=== PATIENT | female | born 1970 | race Hispanic/Latino ===

== ENCOUNTER 2021-12-26 13:13 | Inpatient (IN) | payer MEDICARE ==
[2021-12-27 01:32] LABS: Basophils # (Auto) 0.1 K/mm3 (0.0-0.1); Basophils % (Auto) 1.9 % (0.0-1.8); Eosinophils # (Auto) 0.2 K/mm3 (0.0-0.4); Eosinophils % (Auto) 3.8 % (0.0-4.3); Hematocrit 36.1 % (30.3-42.9); Hemoglobin 11.6 gm/dl (10.1-14.3); Lymphocytes # (Auto) 1.7 K/mm3 (1.2-5.4); Mean Corpuscular HGB Conc 32 % (30-34); Mean Corpuscular Volume 87 fl (79-97); Monocytes # (Auto) 0.3 K/mm3 (0.0-0.8); Monocytes % (Auto) 6.3 % (0.0-7.3); Platelet Count 270 K/mm3 (140-440); Red Blood Count 4.13 M/mm3 (3.65-5.03); Red Cell Distribution Width 16.7 % (13.2-15.2)
[2021-12-27 01:51] LABS: Albumin 2.6 g/dL (3.9-5); Calcium 9.6 mg/dL (8.4-10.2)
--- NOTE | 2021-12-27 03:41 | Emergency Department Report ---
ED General Adult HPI - General Chief complaint: Medical Clearance Stated complaint: D[place] [place] Time Seen by Provider: 12/27/21 03:17 Source: patient, RN notes reviewed, old records reviewed Mode of arrival: Ambulatory Limitations: Physical Limitation - History of Present Illness Initial comments: The patient was evaluated in the emergency department for symptoms described in the history of present illness. He/she was evaluated in the context of the global COVID-19 pandemic, which necessitated consideration that the patient might be at risk for infection with the virus that causes COVID-19. Institutional protocols and algorithms that pertain to the evaluation of patients at risk for COVID-19 are in a state of rapid change based on info rmation released by regulatory bodies including the CDC and federal and state organizations. These policies and algorithms were followed during the patient's care in the emergency department. Please note that these policies, procedures and recommendations changed on a rapid basis. Primary CARE doctor: Dr. Ventura Past medical history: End-stage renal disease on hemodialysis, Thursday, Thursday, Thursday. Right-sided vascular access catheter, indwelling Zazueta catheter, COPD, PVD. The patient is a 51-year-old female, who presents to the emergency room today with a complaint that her recycling assistant sent her to the emergency room for a nonfunctioning right-sided vascular access hemodialysis catheter. The patient endorses diarrhea. The patient does endorse chronic pain. She is due for dialysis today. -: Sudden Consistency: constant Improves with: none Worsens with: none - Related Data Previous Rx's Medication Instructions Recorded Last Taken Type Acetaminophen [Acetaminophen TAB] 650 mg PO Q4H PRN tablet 12/13/21 Unknown Rx Aspirin EC [Ecotrin] 325 mg PO QDAY tablet 12/13/21 Unknown Rx Folic Acid/Vit B Comp W-C [Renal 1 cap PO QDAY capsule 12/13/21 Unknown Rx Caps] Metoprolol [Lopressor TAB] 12.5 mg PO BID tablet 12/13/21 Unknown Rx Allergies Allergy/AdvReac Type Severity Reaction Status Date / Time morphine Allergy Rash Verified 12/11/21 13:33 ED Review of Systems ROS: Stated complaint: D[place]YSIS [place] Other details as noted in HPI Constitutional: denies: fever Eyes: denies: eye discharge ENT: denies: epistaxis Respiratory: denies: cough Cardiovascular: denies: chest pain Gastrointestinal: denies: abdominal pain Genitourinary: denies: dysuria Musculoskeletal: back pain Neurological: weakness Psychiatric: anxiety ED Past Medical Hx - Past Medical History Hx CVA: Yes Hx Congestive Heart Failure: No Hx Diabetes: Yes Hx Renal Disease: Yes (dialysis 3x week MWF) Hx Asthma: No Hx COPD: No Additional medical history: hypotension - Surgical History Additional Surgical History: bka - Social History Smoking Status: Never Smoker - Medications Home Medications: Home Medications Medication Instructions Recorded Confirmed Last Taken Type Acetaminophen [Acetaminophen TAB] 650 mg PO Q4H PRN tablet 12/13/21 Unknown Rx Aspirin EC [Ecotrin] 325 mg PO QDAY tablet 12/13/21 Unknown Rx Folic Acid/Vit B Comp W-C [Renal 1 cap PO QDAY capsule 12/13/21 Unknown Rx Caps] Metoprolol [Lopressor TAB] 12.5 mg PO BID tablet 12/13/21 Unknown Rx ED Physical Exam - General Limitations: No Limitations General appearance: alert, in no apparent distress - Head Head exam: Present: atraumatic, normocephalic - Eye Eye exam: Present: normal appearance, EOMI. Absent: nystagmus - ENT ENT exam: Present: normal exam, normal orophraynx, mucous membranes moist, normal external ear exam - Neck Neck exam: Present: normal inspection, full ROM. Absent: tenderness, meningismus - Respiratory Respiratory exam: Present: normal lung sounds bilaterally. Absent: respiratory distress, wheezes, rales, rhonchi, stridor, decreased breath sounds - Cardiovascular Cardiovascular Exam: Present: normal rhythm, tachycardia, normal heart sounds. Absent: bradycardia, irregular rhythm, systolic murmur, diastolic murmur, rubs, gallop - GI/Abdominal GI/Abdominal exam: Present: soft. Absent: distended, tenderness, guarding, rebound, rigid - External exam: Present: normal external exam (Patient provides verbal consent for external examination. Chaperoned by nurse Guevara.), other (There is a Zazueta catheter in place draining clear yellow urine) - Extremities Exam Extremities exam: Present: normal inspection (Left lower extremity status post below-knee amputation. There is an indwelling PICC line noted in the left upper extremity), full ROM, other (2+ pulses noted in the bilateral upper extrem ities.). Absent: calf tenderness - Back Exam Back exam: Present: normal inspection. Absent: tenderness, CVA tenderness (R), CVA tenderness (L), paraspinal tenderness, vertebral tenderness - Neurological Exam Neurological exam: Present: alert, oriented X3, other (No facial droop. Tongue midline. Extraocular movements intact bilaterally. Facial sensation intact to light touch in V1, V2, V3 distribution bilaterally. 5 and a 5 strength in 4 extremities. Sensation intact to light touch in 4 extremities.) - Psychiatric Psychiatric exam: Present: anxious, flat affect - Skin Skin exam: Present: warm, dry, intact, normal color. Absent: rash ED Course Vital Signs 12/26/21 12/27/21 12/27/21 15:04 03:50 03:54 Temperature 97.9 F 97.6 F Pulse Rate 108 H 102 H 98 H Respiratory 18 13 14 Rate Blood Pressure 126/24 Blood Pressure 106/41 [Left] O2 Sat by Pulse 96 100 Oximetry 12/27/21 12/27/21 12/27/21 04:01 04:02 04:09 Temperature 97.6 F Pulse Rate 98 H Respiratory Rate Blood Pressure Blood Pressure 126/24 105/42 [Left] O2 Sat by Pulse 100 Oximetry ED Medical Decision Making - Lab Data Result diagrams: 12/27/21 01:05 12/27/21 01:05 Vital Signs 12/26/21 12/27/21 12/27/21 15:04 03:50 03:54 Temperature 97.9 F 97.6 F Pulse Rate 108 H 102 H 98 H Respiratory 18 13 14 Rate Blood Pressure 126/24 Blood Pressure 106/41 [Left] O2 Sat by Pulse 96 100 Oximetry 12/27/21 12/27/21 12/27/21 04:01 04:02 04:09 Temperature 97.6 F Pulse Rate 98 H Respiratory Rate Blood Pressure Blood Pressure 126/24 105/42 [Left] O2 Sat by Pulse 100 Oximetry Lab Results 12/27/21 12/27/21 12/27/21 Range/Units 01:05 01:05 01:05 WBC 5.4 (4.5-11.0) K/mm3 RBC 4.13 (3.65-5.03) M/mm3 Hgb 11.6 (10.1-14.3) gm/dl Hct 36.1 (30.3-42.9) % MCV 87 (79-97) fl MCH 28 (28-32) pg MCHC 32 (30-34) % RDW 16.7 H (13.2-15.2) % Plt Count 270 (140-440) K/mm3 Lymph % (Auto) 31.0 (13.4-35.0) % [place] % (Auto) 6.3 (0.0-7.3) % Eos % (Auto) 3.8 (0.0-4.3) % Baso % (Auto) 1.9 H (0.0-1.8) % Lymph # (Auto) 1.7 (1.2-5.4) K/mm3 [place] # (Auto) 0.3 (0.0-0.8) K/mm3 Eos # (Auto) 0.2 (0.0-0.4) K/mm3 Baso # (Auto) 0.1 (0.0-0.1) K/mm3 Seg Neutrophils % 57.0 (40.0-70.0) % Seg Neutrophils # 3.1 (1.8-7.7) K/mm3 Sodium 131 L (137-145) mmol/L Potassium 4.2 (3.6-5.0) mmol/L Chloride 93.2 L (98-107) mmol/L Carbon Dioxide 21 L (22-30) mmol/L Anion Gap 21 mmol/L BUN 44 H (7-17) mg/dL Creatinine 3.9 H (0.6-1.2) mg/dL Estimated GFR 12 ml/min BUN/Creatinine Ratio 11 % Glucose 118 H (65-100) mg/dL Calcium 9.6 (8.4-10.2) mg/dL Total Bilirubin 0.20 (0.1-1.2) mg/dL AST 32 (5-40) units/L ALT 18 (7-56) units/L Alkaline Phosphatase 338 H (35-129) units/L Total Protein 5.6 L (6.3-8.2) g/dL Albumin 2.6 L (3.9-5) g/dL Albumin/Globulin Ratio 0.9 % HCG, Qual (Negative) Salicylates < 0.3 L (2.8-20.0) mg/dL Acetaminophen (10.0-30.0) ug/mL Plasma/Serum Alcohol (0-0.07) % 12/27/21 12/27/21 12/27/21 Range/Units 01:05 01:05 01:05 WBC (4.5-11.0) K/mm3 RBC (3.65-5.03) M/mm3 Hgb (10.1-14.3) gm/dl Hct (30.3-42.9) % MCV (79-97) fl MCH (28-32) pg MCHC (30-34) % RDW (13.2-15.2) % Plt Count (140-440) K/mm3 Lymph % (Auto) (13.4-35.0) % [place] % (Auto) (0.0-7.3) % Eos % (Auto) (0.0-4.3) % Baso % (Auto) (0.0-1.8) % Lymph # (Auto) (1.2-5.4) K/mm3 [place] # (Auto) (0.0-0.8) K/mm3 Eos # (Auto) (0.0-0.4) K/mm3 Baso # (Auto) (0.0-0.1) K/mm3 Seg Neutrophils % (40.0-70.0) % Seg Neutrophils # (1.8-7.7) K/mm3 Sodium (137-145) mmol/L Potassium (3.6-5.0) mmol/L Chloride (98-107) mmol/L Carbon Dioxide (22-30) mmol/L Anion Gap mmol/L BUN (7-17) mg/dL Creatinine (0.6-1.2) mg/dL Estimated GFR ml/min BUN/Creatinine Ratio % Glucose (65-100) mg/dL Calcium (8.4-10.2) mg/dL Total Bilirubin (0.1-1.2) mg/dL AST (5-40) units/L ALT (7-56) units/L Alkaline Phosphatase (35-129) units/L Total Protein (6.3-8.2) g/dL Albumin (3.9-5) g/dL Albumin/Globulin Ratio % HCG, Qual Negative (Negative) Salicylates (2.8-20.0) mg/dL Acetaminophen 5.0 L (10.0-30.0) ug/mL Plasma/Serum Alcohol < 0.01 (0-0.07) % - Medical Decision Making Differential diagnosis, including but not limited to: End-stage renal disease on hemodialysis, nonfunctioning hemodialysis access catheter Assessment and plan: 51-year-old female, presenting to the emergency room today with a primary complaint of nonfunctioning right-sided hemodialysis access catheter. She is due for hemodialysis today. The patient is currently a resident of [facility]. Given her disabled status, and poor mobility, she is not going to be able to follow-up as an outpatient to have her vascular access catheter change. Given that she is due for hemodialysis today, and given that she needs to have a functioning vascular access catheter for hemodialysis, I reached out to her recycling assistant, Dr. Violet Ngo We discussed the patient's history, physical, laboratory studies and overall clinical impression. He will follow in consultation, and arrange for hemodialysis. He also indicates that he will get in touch with interventional radiology and/or vascular surgery, to replace this patient's vascular access catheter. Given patient's multiple needs, including need for hemodialysis today, need for vascular access catheter replacement/repair, we will admit this patient to the medical service to facilitate coordination of the aforementioned. The patient is agreeable to this plan of care. Hospital physician, Dr. Anushka Ledezma to admit to [facility] Critical care attestation.: If time is entered above; I have spent that time in minutes in the direct care of this critically ill patient, excluding procedure time. ED Disposition Clinical Impression: ESRD (end stage renal disease), Dialysis catheter clot or failure Disposition: 09 ADMITTED INPATIENT Is pt being admited?: Yes Does the pt Need Aspirin: No Condition: Stable
[2021-12-27] MEDS ORDERED: ACETAMINOPHEN 325 MG TAB PO PRN (05:20)
[2021-12-27] MEDS ORDERED: MORPHINE 4 MG/1 ML INJ IV PRN (05:20)
[2021-12-27] MEDS ORDERED: MAGNESIUM HYDROXIDE (MOM) ORAL LIQD UDC PO PRN (05:20)
[2021-12-27] MEDS ORDERED: MORPHINE 2 MG/1 ML INJ IV PRN (05:20)
[2021-12-27] MEDS ORDERED: ONDANSETRON 4 MG/2 ML INJ IV PRN (05:20)
[2021-12-27] MEDS ORDERED: DEXTROSE 50% IN WATER (25GM) 50 ML SYRINGE IV PRN ×2 (05:20→05:27)
--- NOTE | 2021-12-27 05:34 | History and Physical Report ---
History of Present Illness Date of examination: 12/27/21 Date of admission: 12/27/2021 Chief complaint: Malfunctioning Vas Cath. History of present illness: 51-year-old female with known history of end-stage renal disease on dialysisThursday, Wednesdays and Fridays presenting to the emergency room today for evaluation of a malfunctioning right-sided vascular access catheter. Patient follows up with Dr. Ngo and she has been encouraged to report to the emergency room for further evaluation and reestablishment of vascular access. Patient indicates that she has been having occasional diarrhea meanwhile she has no major complaints today. She denies any fever or chills, no nausea or vomiting and no abdominal pain. Work-up in the emergency room today, labs were significant for BUN of 44 and creatinine of 3.9 sodium of 131. Potassium of 4.2. Patient is due for dialysis today. Past History Past Medical History: COPD, diabetes, dialysis (THU,THU,THU), ESRD, hypertension, PVD, stroke Past Surgical History: Other (Vas-Cath placement) Social history: no significant social history Family history: no significant family history Medications and Allergies Allergies Allergy/AdvReac Type Severity Reaction Status Date / Time morphine Allergy Rash Verified 12/11/21 13:33 Home Medications Medication Instructions Recorded Confirmed Last Taken Type Acetaminophen [Acetaminophen TAB] 650 mg PO Q4H PRN tablet 12/13/21 Unknown Rx Aspirin EC [Ecotrin] 325 mg PO QDAY tablet 12/13/21 Unknown Rx Folic Acid/Vit B Comp W-C [Renal 1 cap PO QDAY capsule 12/13/21 Unknown Rx Caps] Metoprolol [Lopressor TAB] 12.5 mg PO BID tablet 12/13/21 Unknown Rx Active Meds: Active Medications Acetaminophen (Acetaminophen 325 Mg Tab) 650 mg PO Q4H PRN PRN Reason: Pain MILD(1-3)/Fever >100.5/IBANEZ Dextrose (Dextrose 50% In Water (25gm) 50 Ml Syringe) 50 ml IV Q30MIN PRN; Protocol PRN Reason: Hypoglycemia Dextrose (Dextrose 50% In Water (25gm) 50 Ml Syringe) 50 ml IV Q30MIN PRN; Protocol PRN Reason: Hypoglycemia Insulin Human Lispro (Insulin Lispro 100 Unit/Ml) 0 unit SUB-Q ACHS HAYDER; Protocol Magnesium Hydroxide (Magnesium Hydroxide (Mom) Oral Liqd Udc) 30 ml PO Q4H PRN PRN Reason: Constipation Morphine Sulfate (Morphine 2 Mg/1 Ml Inj) 2 mg IV Q4H PRN PRN Reason: Pain, Moderate (4-6) Morphine Sulfate (Morphine 4 Mg/1 Ml Inj) 4 mg IV Q4H PRN PRN Reason: Pain , Severe (7-10) Ondansetron HCl (Ondansetron 4 Mg/2 Ml Inj) 4 mg IV Q8H PRN PRN Reason: Nausea And Vomiting Sodium Chloride (Sodium Chloride 0.9% 10 Ml Flush Syringe) 10 ml IV BID [place]DER Sodium Chloride (Sodium Chloride 0.9% 10 Ml Flush Syringe) 10 ml IV PRN PRN PRN Reason: LINE FLUSH Review of Systems Constitutional: no fever, no chills Ears, nose, mouth and throat: no nasal congestion, no sore throat Cardiovascular: no chest pain, no palpitations Respiratory: no cough, no shortness of breath Gastrointestinal: diarrhea, no abdominal pain, no nausea, no vomiting Genitourinary Female: no flank pain, no dysuria, no hematuria Musculoskeletal: no neck pain, no low back pain Integumentary: no rash, no pruritis Neurological: no headaches, no change in speech Psychiatric: no anxiety, no depression Endocrine: no polyphagia, no polydipsia, no polyuria, no nocturia Exam - Constitutional Vitals: Temp Pulse Resp BP Pulse Ox 97.6 F 98 H 14 105/42 100 12/27/21 04:02 12/27/21 04:02 12/27/21 03:54 12/27/21 04:09 12/27/21 04:01 General appearance: Present: no acute distress, well-nourished - EENT Eyes: Present: PERRL, EOM intact. Absent: scleral icterus ENT: hearing intact, clear oral mucosa, dentition normal - Neck Neck: Present: supple, normal ROM - Respiratory Respiratory effort: normal Respiratory: bilateral: CTA - Cardiovascular Rhythm: regular Heart Sounds: Present: S1 & S2. Absent: gallop, systolic murmur, diastolic murmur, rub Details: Vas-Cath on the right side of chest. - Extremities Extremities: no ischemia, pulses intact, pulses symmetrical, No edema, normal temperature, normal color, Full ROM Peripheral Pulses: within normal limits - Abdominal General gastrointestinal: Present: soft, non-tender, non-distended, normal bowel sounds. Absent: mass - Integumentary Integumentary: Present: clear, warm, dry, normal turgor. Absent: rash - Musculoskeletal Musculoskeletal: strength equal bilaterally - Psychiatric Psychiatric: appropriate mood/affect, intact judgment & insight, memory intact, cooperative - Neurologic Neurologic: CNII-XII intact, no focal deficits, moves all extremities Results - Labs CBC & Chem 7: 12/27/21 01:05 12/27/21 01:05 Labs: Abnormal lab results 12/27/21 12/27/21 12/27/21 Range/Units 01:05 01:05 01:05 RDW 16.7 H (13.2-15.2) % Baso % (Auto) 1.9 H (0.0-1.8) % Sodium 131 L (137-145) mmol/L Chloride 93.2 L (98-107) mmol/L Carbon Dioxide 21 L (22-30) mmol/L BUN 44 H (7-17) mg/dL Creatinine 3.9 H (0.6-1.2) mg/dL Glucose 118 H (65-100) mg/dL Alkaline Phosphatase 338 H (35-129) units/L Total Protein 5.6 L (6.3-8.2) g/dL Albumin 2.6 L (3.9-5) g/dL Salicylates < 0.3 L (2.8-20.0) mg/dL Acetaminophen (10.0-30.0) ug/mL 12/27/21 Range/Units 01:05 RDW (13.2-15.2) % Baso % (Auto) (0.0-1.8) % Sodium (137-145) mmol/L Chloride (98-107) mmol/L Carbon Dioxide (22-30) mmol/L BUN (7-17) mg/dL Creatinine (0.6-1.2) mg/dL Glucose (65-100) mg/dL Alkaline Phosphatase (35-129) units/L Total Protein (6.3-8.2) g/dL Albumin (3.9-5) g/dL Salicylates (2.8-20.0) mg/dL Acetaminophen 5.0 L (10.0-30.0) ug/mL Assessment and Plan Assessment: 1. End-stage renal disease on dialysisThursday, Wednesdays and Fridays 2. Malfunctioning Vas-Cath 3. History of peripheral vascular disease 4 4. History of chronic pain Plan: 1. Patient admitted and will be scheduled for dialysis. 2. Consult placed to nephrology for evaluation. 3. Patient will require hemodialysis access. Vascular surgery to be consulted by the director of pharmacy. 4. We will resume routine home medications once reconciled. DVT prophylaxis: Subcutaneous heparin CODE STATUS: Full code
--- NOTE | 2021-12-27 07:15 | Consultation ---
History of Present Illness - Reason for Consult Consult date: 12/27/21 end stage renal disease Past History Past Medical History: COPD, diabetes, dialysis (MON,WED,THU), ESRD, hyper tension, PVD, stroke Past Surgical History: Other (Vas-Cath placement) Social history: no significant social history Family history: no significant family history Medications and Allergies Allergies Allergy/AdvReac Type Severity Reaction Status Date / Time morphine Allergy Rash Verified 12/11/21 13:33 Home Medications Medication Instructions Recorded Confirmed Last Taken Type Acetaminophen [Acetaminophen TAB] 650 mg PO Q4H PRN tablet 12/13/21 Unknown Rx Aspirin EC [Ecotrin] 325 mg PO QDAY tablet 12/13/21 Unknown Rx Folic Acid/Vit B Comp W-C [Renal 1 cap PO QDAY capsule 12/13/21 Unknown Rx Caps] Metoprolol [Lopressor TAB] 12.5 mg PO BID tablet 12/13/21 Unknown Rx Active Meds: Active Medications Acetaminophen (Acetaminophen 325 Mg Tab) 650 mg PO Q4H PRN PRN Reason: Pain MILD(1-3)/Fever >100.5/IBANEZ Dextrose (Dextrose 50% In Water (25gm) 50 Ml Syringe) 0 ml IV Q30MIN PRN; Protocol PRN Reason: Hypoglycemia Hydromorphone HCl (Hydromorphone 0.5 Mg/0.5 Ml Inj) 0.5 mg IV Q4H PRN PRN Reason: Pain , (4-6) Insulin Human Lispro (Insulin Lispro 100 Unit/Ml) 0 unit SUB-Q ACHS [facility]; Protocol Magnesium Hydroxide (Magnesium Hydroxide (Mom) Oral Liqd Udc) 30 ml PO Q4H PRN PRN Reason: Constipation Ondansetron HCl (Ondansetron 4 Mg/2 Ml Inj) 4 mg IV Q8H PRN PRN Reason: Nausea And Vomiting Sodium Chloride (Sodium Chloride 0.9% 10 Ml Flush Syringe) 10 ml IV BID [place] Sodium Chloride (Sodium Chloride 0.9% 10 Ml Flush Syringe) 10 ml IV PRN PRN PRN Reason: LINE FLUSH Exam - Vital Signs Vital signs: Vital Signs Temp Pulse Resp BP Pulse Ox 97.9 F 108 H 18 106/41 96 12/26/21 15:04 12/26/21 15:04 12/26/21 15:04 12/26/21 15:04 12/26/21 15:04 Results - Lab Results 12/27/21 01:05 12/27/21 01:05 Most recent lab results Calcium 9.6 mg/dL (8.4-10.2) 12/27/21 01:05
[2021-12-27] MEDS: INSULIN LISPRO 100 UNIT/ML SUB-Q SCH ×4 (08:33→21:57)
[2021-12-27] MEDS: HYDROmorphone 0.5 MG/0.5 ML INJ IV PRN ×2 (08:47→17:19)
[2021-12-27] MEDS ORDERED: HEPARIN/NS 5000 UNIT/500ML 500 ML IR ONE (11:00)
[2021-12-27] MEDS ORDERED: HEPARIN 10,000 UNITS/10 ML VIAL ONE (11:00)
[2021-12-27] MEDS ORDERED: fentaNYL 100 MCG/2 ML INJ ONE (11:13)
[2021-12-27] MEDS ORDERED: MIDAZOLAM 2 MG/2 ML INJ ONE (11:13)
[2021-12-27] MEDS ORDERED: SODIUM CHLORIDE 0.9% 250ML 250 ML ONE (11:14)
--- NOTE | 2021-12-27 11:32 | Consultation ---
History of Present Illness - Reason for Consult Consult date: 12/27/21 Complications of Dialysis Access Requesting physician: LINDA FRANCISCO - History of Present Illness The patient is a 51-year-old female with a history of end-stage renal disease who is on hemodialysis through a right internal jugular permacath. She was at hemodialysis when they attempted to flush her permacath and broke the tip of the syringe off in the hub of the permacath. She was unable to undergo dialysis it was sent to the emergency department for exchange of her permacath. She denies any chest pain and shortness of breath. She does complain of some back pain however she has a history of chronic pain. She has no additional complaints at this time. Past History Past Medical History: COPD, diabetes, dialysis (MON,THU,THU), ESRD, hypertens ion, PVD, stroke Past Surgical History: Other (Permacath insertion, spinal cord stimulator) Social history: no significant social history Family history: no significant family history Medications and Allergies Allergies Allergy/AdvReac Type Severity Reaction Status Date / Time morphine Allergy Rash Verified 12/11/21 13:33 Home Medications Medication Instructions Recorded Confirmed Last Taken Type Acetaminophen [Acetaminophen TAB] 650 mg PO Q4H PRN tablet 12/13/21 Unknown Rx Aspirin EC [Ecotrin] 325 mg PO QDAY tablet 12/13/21 Unknown Rx Folic Acid/Vit B Comp W-C [Renal 1 cap PO QDAY capsule 12/13/21 Unknown Rx Caps] Metoprolol [Lopressor TAB] 12.5 mg PO BID tablet 12/13/21 Unknown Rx Active Meds: Active Medications Acetaminophen (Acetaminophen 325 Mg Tab) 650 mg PO Q4H PRN PRN Reason: Pain MILD(1-3)/Fever >100.5/IBANEZ Dextrose (Dextrose 50% In Water (25gm) 50 Ml Syringe) 0 ml IV Q30MIN PRN; Protocol PRN Reason: Hypoglycemia Hydromorphone HCl (Hydromorphone 0.5 Mg/0.5 Ml Inj) 0.5 mg IV Q4H PRN PRN Reason: Pain , (4-6) Last Admin: 12/27/21 08:47 Dose: 0.5 mg Insulin Human Lispro (Insulin Lispro 100 Unit/Ml) 0 unit SUB-Q ACHS [facility]; Protocol Last Admin: 12/27/21 08:33 Dose: Not Given Magnesium Hydroxide (Magnesium Hydroxide (Mom) Oral Liqd Udc) 30 ml PO Q4H PRN PRN Reason: Constipation Ondansetron HCl (Ondansetron 4 Mg/2 Ml Inj) 4 mg IV Q8H PRN PRN Reason: Nausea And Vomiting Sodium Chloride (Sodium Chloride 0.9% 10 Ml Flush Syringe) 10 ml IV BID HAYDER Sodium Chloride (Sodium Chloride 0.9% 10 Ml Flush Syringe) 10 ml IV PRN PRN PRN Reason: LINE FLUSH Review of Systems All systems: negative Exam - Constitutional Vitals: Temp Pulse Resp BP Pulse Ox 97.6 F 103 H 16 160/50 100 12/27/21 04:02 12/27/21 09:11 12/27/21 09:11 12/27/21 09:11 12/27/21 08:01 General appearance: Present: no acute distress - Neck Neck: Present: other (Right internal jugular permacath in place without overt signs of infection) - Respiratory Respiratory effort: normal - Cardiovascular Rhythm: regular - Extremities Extremities: no ischemia, No edema - Abdominal General gastrointestinal: Present: soft Female genitourinary: Present: other (Zazueta catheter in place) - Rectal Rectal Exam: deferred Results - Labs CBC & Chem 7: 12/27/21 01:05 12/27/21 01:05 Labs: Abnormal lab results 12/27/21 12/27/21 12/27/21 Range/Units 01:05 01:05 01:05 RDW 16.7 H (13.2-15.2) % Baso % (Auto) 1.9 H (0.0-1.8) % Sodium 131 L (137-145) mmol/L Chloride 93.2 L (98-107) mmol/L Carbon Dioxide 21 L (22-30) mmol/L BUN 44 H (7-17) mg/dL Creatinine 3.9 H (0.6-1.2) mg/dL Glucose 118 H (65-100) mg/dL Alkaline Phosphatase 338 H (35-129) units/L Total Protein 5.6 L (6.3-8.2) g/dL Albumin 2.6 L (3.9-5) g/dL Salicylates < 0.3 L (2.8-20.0) mg/dL Acetaminophen (10.0-30.0) ug/mL 12/27/21 Range/Units 01:05 RDW (13.2-15.2) % Baso % (Auto) (0.0-1.8) % Sodium (137-145) mmol/L Chloride (98-107) mmol/L Carbon Dioxide (22-30) mmol/L BUN (7-17) mg/dL Creatinine (0.6-1.2) mg/dL Glucose (65-100) mg/dL Alkaline Phosphatase (35-129) units/L Total Protein (6.3-8.2) g/dL Albumin (3.9-5) g/dL Salicylates (2.8-20.0) mg/dL Acetaminophen 5.0 L (10.0-30.0) ug/mL Assessment and Plan The patient is a 51-year-old female with a history of end-stage renal disease who was on hemodialysis through a right internal jugular permacath. The tip of a syringe was broken off into the hub of her permacath and she now requires exchange of her permacath. She was given the risk, benefits, and alternative procedures and consented to the procedure.
[2021-12-27] MEDS: LIDOCAINE (1%) 10 MG/1 ML VIAL 20 ML MDV ONE ×2 (11:36→11:37)
--- NOTE | 2021-12-27 11:43 | Operative Report ---
Operative Report Operative Report: Date of Procedure: 12/27/2021 Pre-operative Diagnosis: Complications of Dialysis Access Post-operative Diagnosis: Same Procedure(s): 1. Exchange of Right Internal Jugular Permacath to 23 Cm Glidepath Permacath over Wire 2. Radiologic Supervision with Interpretation 3. Monitored Moderate Sedation (Total Anesthesia Time: 12 Minutes) Surgeon: Leander Holloway M.D. Batch Mixer Operator: None Anesthesia: Local/Monitored Moderate Sedation EBL: Minimal Counts: Correct Complications: None Condition: Stable Findings: Catheter was placed with the distal tip in the right atrium and there was no evidence of pneumothorax at the completion of the case. Specimen: The indwelling catheter was discarded. Indication: The patient presented with a permacath that had the tip of a syringe broken off and one of the hubs was no longer usable. She is in need of a permacath exchange. She was given the risk, benefits, and alternative procedures and consented to the procedure. Description of Procedure: The prospecting driller film demonstrated that the patient's indwelling permacath at the distal tip in the mid superior vena cava. I decided to place a longer permacath. Lidocaine was used to anesthetize the skin and soft tissue surrounding the exit site of the indwelling catheter. A 0.035 J-wire was advanced through the permacath and into the inferior vena cava. A curved hemostat was then used to free the cuff from the surrounding soft tissue. Once the cuff was freed the catheter was removed leaving the wire in place. A 23 cm Glidepath permacath was then advanced over the wire by Seldinger technique and into place. The wire and stylette were then removed and both ports easily aspirated and flushed and were then primed with the appropriate amount heparin. The catheter was then secured in position with a 2-0 Ethilon interrupted fashion and was dressed with a sterile dressing. Final fluoroscopy demonstrated the catheter was in adequate position with the distal tip in the right atrium and no evidence of pneumothorax. The patient tolerated the procedure well. All sponge, needle, and instrument counts were correct. The patient was taken to the recovery area in stable condition.
--- NOTE | 2021-12-27 11:55 | Event Note ---
Date: 12/27/21 Patient seen and examined earlier this morning. He was currently residing in [facility] with plans to return upon discharge. Will have her Vas-Cath exchanged today and dialysis after. Anticipate patient can be discharged after dialysis back to [facility] later today. COVID test ordered.
[2021-12-27] MEDS ORDERED: HEPARIN 10,000 UNITS/10 ML VIAL IV PRN (11:58)
[2021-12-27] MEDS ORDERED: SODIUM CHLORIDE 0.9% 100 ML IV PRN (11:58)
[2021-12-27 15:42] LABS: Hepatitis B Surface Antigen Non-Reactive (Negative); Hepatitis C Virus Antibody Non-Reactive (NonReactive)
[2021-12-27] MEDS: METOPROLOL TARTRATE 25 MG TAB PO SCH (22:08)
[2021-12-28] MEDS: HYDROmorphone 0.5 MG/0.5 ML INJ IV PRN (03:14)
[2021-12-28 08:37] LABS: Basophils # (Auto) 0.1 K/mm3 (0.0-0.1); Basophils % (Auto) 1.4 % (0.0-1.8); Eosinophils # (Auto) 0.2 K/mm3 (0.0-0.4); Eosinophils % (Auto) 4.7 % (0.0-4.3); Hematocrit 36.6 % (30.3-42.9); Hemoglobin 11.7 gm/dl (10.1-14.3); Lymphocytes # (Auto) 1.5 K/mm3 (1.2-5.4); Lymphocytes % (Auto) 34.9 % (13.4-35.0); Mean Corpuscular HGB Conc 32 % (30-34); Mean Corpuscular Volume 87 fl (79-97); Monocytes # (Auto) 0.3 K/mm3 (0.0-0.8); Monocytes % (Auto) 7.8 % (0.0-7.3); Platelet Count 274 K/mm3 (140-440); Red Blood Count 4.19 M/mm3 (3.65-5.03); Red Cell Distribution Width 16.9 % (13.2-15.2)
[2021-12-28] MEDS: INSULIN LISPRO 100 UNIT/ML SUB-Q SCH ×3 (08:44→16:59)
[2021-12-28 08:59] LABS: Calcium 9.9 mg/dL (8.4-10.2)
[2021-12-28] MEDS: METOPROLOL TARTRATE 25 MG TAB PO SCH (09:00)
[2021-12-28] MEDS: oxyCODONE /ACETAMINOPHEN 5-325MG TAB PO PRN ×2 (09:13→18:19)
--- NOTE | 2021-12-28 09:40 | Progress Note ---
Subjective Date of service: 12/28/21 Objective - Vital Signs Vital signs: Vital Signs - 12hr 12/27/21 12/27/21 12/27/21 22:00 22:04 22:08 Temperature Pulse Rate 108 H 106 H 106 H Respiratory Rate Blood Pressure 95/43 Blood Pressure 95/43 [Left] O2 Sat by Pulse Oximetry 12/27/21 12/28/21 12/28/21 23:42 03:16 05:30 Temperature 98.4 F 98.7 F Pulse Rate 99 H 105 H 108 H Respiratory 16 15 Rate Blood Pressure 155/34 145/42 Blood Pressure [Left] O2 Sat by Pulse 96 99 Oximetry - Lab 12/28/21 07:21 12/28/21 07:21 Most recent lab results Calcium 9.9 mg/dL (8.4-10.2) 12/28/21 07:21 Medications & Allergies - Medications Allergies/Adverse Reactions: Allergies morphine Allergy (Verified 12/11/21 13:33) Rash Home Medications: Home Medications Medication Instructions Recorded Confirmed Last Taken Type Acetaminophen [Acetaminophen TAB] 650 mg PO Q4H PRN tablet 12/13/21 Unknown Rx Aspirin EC [Ecotrin] 325 mg PO QDAY tablet 12/13/21 Unknown Rx Folic Acid/Vit B Comp W-C [Renal 1 cap PO QDAY capsule 12/13/21 Unknown Rx Caps] Metoprolol [Lopressor TAB] 12.5 mg PO BID tablet 12/13/21 Unknown Rx Active Medications: Generic Name Dose Route Start Last Admin Trade Name Freq PRN Reason Stop Dose Admin Acetaminophen 650 mg 12/27/21 05:20 Acetaminophen 325 Mg Tab PO Q4H PRN Pain MILD(1-3)/Fever >100.5/IBANEZ Aspirin 325 mg 12/28/21 10:00 12/28/21 09:13 Aspirin Ec 325 Mg Tab PO 325 mg QDAY HAYDER Administration Dextrose 0 ml 12/27/21 05:27 Dextrose 50% In Water (25gm) 50 Ml Syringe IV Q30MIN PRN Hypoglycemia Protocol Heparin Sodium (Porcine) 3,000 unit 12/27/21 11:58 Heparin 10,000 Units/10 Ml Vial IV JOSE LUIS PRN hemodialysis Hydromorphone HCl 0.5 mg 12/27/21 05:41 12/28/21 03:14 Hydromorphone 0.5 Mg/0.5 Ml Inj IV 0.5 mg Q4H PRN Administration Pain, Moderate (4-6) Sodium Chloride 100 mls @ 999 mls/hr 12/27/21 11:58 Nacl 0.9% IV JOSE LUIS PRN Hypotension Insulin Human Lispro 0 unit 12/27/21 07:30 12/28/21 08:44 Insulin Lispro 100 Unit/Ml SUB-Q Not Given ACHS [facility] Protocol Magnesium Hydroxide 30 ml 12/27/21 05:20 Magnesium Hydroxide (Mom) Oral Liqd Udc PO Q4H PRN Constipation Metoprolol Tartrate 12.5 mg 12/27/21 22:00 12/27/21 22:08 Metoprolol Tartrate 25 Mg Tab PO Not Given BID [facility] Multivit/Ca Carb/B Cmplx/FA/Prenat 1 cap 12/28/21 10:00 12/28/21 09:13 Folic Acid/Vit B Comp W-C 1 Mg (Renal Caps) PO 1 cap QDAY HAYDER Administration Ondansetron HCl 4 mg 12/27/21 05:20 Ondansetron 4 Mg/2 Ml Inj IV Q8H PRN Nausea And Vomiting Oxycodone/Acetaminophen 2 tab 12/27/21 13:00 12/28/21 09:13 Oxycodone /Acetaminophen 5-325mg Tab PO 2 tab Q8H PRN Administration Pain, Moderate (4-6) Sodium Chloride 10 ml 12/27/21 10:00 12/27/21 22:10 Sodium Chloride 0.9% 10 Ml Flush Syringe IV 10 ml BID HAYDER Administration Sodium Chloride 10 ml 12/27/21 05:20 Sodium Chloride 0.9% 10 Ml Flush Syringe IV PRN PRN LINE FLUSH
[2021-12-28] MEDS ORDERED: ASPIRIN EC 325 MG TAB PO SCH (10:00)
[2021-12-28] MEDS ORDERED: FOLIC ACID/VIT B COMP W-C 1 MG (RENAL CAPS) PO SCH (10:00)
[2021-12-28 11:59] VITALS: BP 198/47
--- NOTE | 2021-12-28 13:16 | Progress Note ---
Assessment and Plan Assessment and plan: #End-stage renal disease on dialysisThursday, Wednesdays and Fridays #Malfunctioning hemodialysis access -Vas-Cath exchanged performed by vascular surgery yesterday -Dialyzed successfully yesterday -will continue dialysis M/W/F -Nephrology following, assistance appreciated #Hypertension -Patient prescribed metoprolol 12.5 mg twice daily -Continue as needed blood pressure medication -Goal SBP less than 160 -May require additional medications #History of peripheral vascular disease #Right lower extremity BKA-stable -continue ASA #History of chronic pain -follows with chronic pain specialist outpatient -[employer] checked, patient has been getting percocet 10mg q8h prescriptions -We will continue Percocet PRN q8h #Advanced care planning -Disease education conducted, care plan discussed, diagnoses discussed, prognosis discussed, and patient acknowledges understanding with care plan -Time: +30 min #Discharge planning -Patient to return to SNF, currently medically stable for discharge History Interval history: No acute events overnight. Patient reports feeling well. Has no complaints at this time. Hospitalist Physical - Physical exam Narrative exam: GENERAL: Well-developed well-nourished. In no acute distress. HEENT: Normocephalic. Atraumatic. CHEST/LUNGS: Right chest permacath with dressing intact. CTAB on room air HEART/CARDIOVASCULAR: RRR. No murmur, rubs or gallops appreciated. ABDOMEN: +BS. NT/ND. NEURO: No focal motor deficit. Follows all commands. MUSCULOSKELETAL: No joint effusion EXTREMITIES: RLE BKA stump intact. No cyanosis, clubbing or edema. PSYCH: Cooperative. - Constitutional Vitals: Temp Pulse Resp BP Pulse Ox 97.9 F 79 14 198/47 100 12/28/21 07:57 12/28/21 11:55 12/28/21 11:55 12/28/21 11:55 12/28/21 11:55 General appearance: Present: no acute distress, well-nourished Results - Labs CBC & Chem 7: 12/28/21 07:21 12/28/21 07:21 Labs: Laboratory Last Values WBC 4.3 K/mm3 (4.5-11.0) L 12/28/21 07:21 RBC 4.19 M/mm3 (3.65-5.03) 12/28/21 07:21 Hgb 11.7 gm/dl (10.1-14.3) 12/28/21 07:21 Hct 36.6 % (30.3-42.9) 12/28/21 07:21 MCV 87 fl (79-97) 12/28/21 07:21 MCH 28 pg (28-32) 12/28/21 07:21 MCHC 32 % (30-34) 12/28/21 07:21 RDW 16.9 % (13.2-15.2) H 12/28/21 07:21 Plt Count 274 K/mm3 (140-440) 12/28/21 07:21 Lymph % (Auto) 34.9 % (13.4-35.0) 12/28/21 07:21 [place] % (Auto) 7.8 % (0.0-7.3) H 12/28/21 07:21 Eos % (Auto) 4.7 % (0.0-4.3) H 12/28/21 07:21 Baso % (Auto) 1.4 % (0.0-1.8) 12/28/21 07:21 Lymph # (Auto) 1.5 K/mm3 (1.2-5.4) 12/28/21 07:21 [place] # (Auto) 0.3 K/mm3 (0.0-0.8) 12/28/21 07:21 Eos # (Auto) 0.2 K/mm3 (0.0-0.4) 12/28/21 07:21 Baso # (Auto) 0.1 K/mm3 (0.0-0.1) 12/28/21 07:21 Seg Neutrophils % 51.2 % (40.0-70.0) 12/28/21 07:21 Seg Neutrophils # 2.2 K/mm3 (1.8-7.7) 12/28/21 07:21 Sodium 140 mmol/L (137-145) D 12/28/21 07:21 Potassium 3.6 mmol/L (3.6-5.0) 12/28/21 07:21 Chloride 104.6 mmol/L (98-107) 12/28/21 07:21 Carbon Dioxide 23 mmol/L (22-30) 12/28/21 07:21 Anion Gap 16 mmol/L 12/28/21 07:21 BUN 21 mg/dL (7-17) H 12/28/21 07:21 Creatinine 2.5 mg/dL (0.6-1.2) H 12/28/21 07:21 Estimated GFR 20 ml/min 12/28/21 07:21 BUN/Creatinine Ratio 8 % 12/28/21 07:21 Glucose 63 mg/dL (65-100) L 12/28/21 07:21 POC Glucose 135 mg/dL (70-105) H 12/28/21 11:54 Calcium 9.9 mg/dL (8.4-10.2) 12/28/21 07:21 Total Bilirubin 0.20 mg/dL (0.1-1.2) 12/27/21 01:05 AST 32 units/L (5-40) 12/27/21 01:05 ALT 18 units/L (7-56) 12/27/21 01:05 Alkaline Phosphatase 338 units/L (35-129) H 12/27/21 01:05 Total Protein 5.6 g/dL (6.3-8.2) L 12/27/21 01:05 Albumin 2.6 g/dL (3.9-5) L 12/27/21 01:05 Albumin/Globulin Ratio 0.9 % 12/27/21 01:05 HCG, Qual Negative (Negative) 12/27/21 01:05 Salicylates < 0.3 mg/dL (2.8-20.0) L 12/27/21 01:05 Acetaminophen 5.0 ug/mL (10.0-30.0) L 12/27/21 01:05 Plasma/Serum Alcohol < 0.01 % (0-0.07) 12/27/21 01:05 SARS-CoV-2 (PCR) Negative (Negative) 12/27/21 16:40 Hepatitis A IgM Ab Non-reactive (NonReactive) 12/27/21 01:05 Hep Bs Antigen Non-reactive (Negative) 12/27/21 01:05 Hep B Core IgM Ab Non-reactive (NonReactive) 12/27/21 01:05 Hepatitis C Antibody Non-reactive (NonReactive) 12/27/21 01:05 Zazueta/IV: Voiding Method Indwelling Catheter Active Medications - Current Medications Current Medications: Generic Name Dose Route Start Last Admin Trade Name Freq PRN Reason Stop Dose Admin Acetaminophen 650 mg 12/27/21 05:20 Acetaminophen 325 Mg Tab PO Q4H PRN Pain MILD(1-3)/Fever >100.5/IBANEZ Aspirin 325 mg 12/28/21 10:00 12/28/21 09:13 Aspirin Ec 325 Mg Tab PO 325 mg QDAY HAYDER Administration Dextrose 0 ml 12/27/21 05:27 Dextrose 50% In Water (25gm) 50 Ml Syringe IV Q30MIN PRN Hypoglycemia Protocol Heparin Sodium (Porcine) 3,000 unit 12/27/21 11:58 Heparin 10,000 Units/10 Ml Vial IV JOSE LUIS PRN hemodialysis Hydromorphone HCl 0.5 mg 12/27/21 05:41 12/28/21 03:14 Hydromorphone 0.5 Mg/0.5 Ml Inj IV 0.5 mg Q4H PRN Administration Pain, Moderate (4-6) Sodium Chloride 100 mls @ 999 mls/hr 12/27/21 11:58 Nacl 0.9% IV JOSE LUIS PRN Hypotension Insulin Human Lispro 0 unit 12/27/21 07:30 12/28/21 12:30 Insulin Lispro 100 Unit/Ml SUB-Q Not Given ACHS [facility] Protocol Magnesium Hydroxide 30 ml 12/27/21 05:20 Magnesium Hydroxide (Mom) Oral Liqd Udc PO Q4H PRN Constipation Metoprolol Tartrate 12.5 mg 12/27/21 22:00 12/28/21 09:00 Metoprolol Tartrate 25 Mg Tab PO 12.5 mg BID HAYDER Administration Multivit/Ca Carb/B Cmplx/FA/Prenat 1 cap 12/28/21 10:00 12/28/21 09:13 Folic Acid/Vit B Comp W-C 1 Mg (Renal Caps) PO 1 cap QDAY HAYDER Administration Ondansetron HCl 4 mg 12/27/21 05:20 Ondansetron 4 Mg/2 Ml Inj IV Q8H PRN Nausea And Vomiting Oxycodone/Acetaminophen 2 tab 12/27/21 13:00 12/28/21 09:13 Oxycodone /Acetaminophen 5-325mg Tab PO 2 tab Q8H PRN Administration Pain, Moderate (4-6) Sodium Chloride 10 ml 12/27/21 10:00 12/27/21 22:10 Sodium Chloride 0.9% 10 Ml Flush Syringe IV 10 ml BID HAYDER Administration Sodium Chloride 10 ml 12/27/21 05:20 Sodium Chloride 0.9% 10 Ml Flush Syringe IV PRN PRN LINE FLUSH Nutrition/Malnutrition Assess - Dietary Evaluation Nutrition/Malnutrition Findings: Nutrition Notes Start: 12/27/21 13:43 Freq: Status: Active Protocol: Document 12/28/21 11:42 SCOTT (Rec: 12/28/21 11:44 SCOTT [email or web address]) Nutrition Notes Need for Assessment generated from: pasting inspector Initial or Follow up Brief Note Current Diagnosis CKD (stage V CKD) Other Pertinent Diagnosis Malfunctioning Vas-Cath Current Diet Cardiac/Consistent CHO Labs/Tests BUN 21 Cr 2.5 BG 63 Pertinent Medications Renal MVI Height 5 ft 8 in Weight 58.967 kg [place] Body Weight (kg) 63.63 BMI 19.8 Weight Status Appropriate Subjective/Other Information Pt screened for skin risk ( Shashi score: 17). Pt already being followed by RD. Vas- Cath to be exchanged and pt will return to [place] after HD. Burn Absent Trauma Absent Minimum of two criteria No Is patient on ventilator? No Is Patient Ambulatory and/or Out of Bed No REE-([place]-confined to bed) 1502.088 Kcal/Kg value to use for calculation 30 Approximate Energy Requirements Using 1769 kcal/Kg Calculation Used for Recommendations Kcal/kg Additional Notes Pro needs >1.2g/kg/day Fluid needs 1-1.5L/day Nutrition Intervention Follow-Up By: 01/02/22 Additional Comments F/U: diet education needs, intakes
--- NOTE | 2021-12-30 09:02 | Discharge Summary ---
Providers - Providers Date of Admission: 12/27/21 05:22 Date of discharge: 12/28/21 Attending physician: SOLANGE JORDAN MD 12/27/21 03:42 Consult to Physician [CONS] Urgent Comment: Dr. Boyce spoke with Dr. Francisco @ 0340 Consulting Provider: LINDA FRANCISCO Physician Instructions: Reason For Exam: esrd 12/27/21 05:27 Consult to Dietitian/Nutrition [CONS] Routine Physician Instructions: Reason For Exam: Reason for Consult: Diet education 12/27/21 07:14 Consult to Interventional Radiology [CONS] Routine Consulting Provider: RADHA OSMAN Reason For Exam: Tunnel dialysis catheter exchange. Place consult to:: Dr. Osman Notified:: - Comment:: Vascular is aware of consult per note 12/27/21 @ 1128 Primary care physician: TED JOHNSON MD Hospitalization Reason for admission: malfunctioning dialysis access Condition: Stable Hospital course: 51-year-old female history of ESRD on dialysis Thursday, Thursday and Fridays who presented with a malfunctioning past dialysis catheter. Vascular surgery was consulted for catheter exchange. After catheter exchange the patient was dialyzed. She was discharged back to [facility] facility. Disposition: 03 [facility] Final Discharge Diagnosis (Prints w/discharge instructions): End-stage renal disease requiring hemodialysis. Malfunction hemodialysis access. Hypertension. History of peripheral vascular disease. Right lower extremity BKA. History of chronic pain Time spent for discharge: 30 minutes Core Measure Documentation - Palliative Care Palliative Care/ Comfort Measures: Not Applicable - Core Measures Any of the following diagnoses?: none Exam - Physical Exam Narrative exam: GENERAL: Well-developed well-nourished. In no acute distress. HEENT: Normocephalic. Atraumatic. CHEST/LUNGS: Right chest permacath with dressing intact. CTAB on room air HEART/CARDIOVASCULAR: RRR. No murmur, rubs or gallops appreciated. ABDOMEN: +BS. NT/ND. NEURO: No focal motor deficit. Follows all commands. MUSCULOSKELETAL: No joint effusion EXTREMITIES: RLE BKA stump intact. No cyanosis, clubbing or edema. PSYCH: Cooperative. - Constitutional Vitals: Temp Pulse Resp BP Pulse Ox 97.9 F 95 H 14 198/47 98 12/28/21 07:57 12/28/21 14:00 12/28/21 11:55 12/28/21 11:55 12/28/21 16:00 Plan Care Plan Goals: Please follow with your primary care provider. Please take all medications as prescribed. Follow up with: ROBERT RECIO MD [Staff Physician] - 3-5 Days
== END 2021-12-28 06:35 | DRG 698 ==
LOC: ED 13:13 → 4A 12-27 05:22
PROVIDERS: ADMIT Internal Medicine Geriatric Medicine; ATTEND Student in an Organized Health Care Education/Training Program
PROC: 02HV33Z Insertion of Infusion Device into Superior Vena Cava, Percutaneous Approach (ICD-10-PCS; principal; 2021-12-27)
PROC: B548ZZA Ultrasonography of Superior Vena Cava, Guidance (ICD-10-PCS; 2021-12-27)
PROC: 5A1D70Z Performance of Urinary Filtration, Intermittent, Less than 6 Hours Per Day (ICD-10-PCS; 2021-12-27)
DX: T82.41XA Breakdown (mechanical) of vascular dialysis catheter, initial encounter (principal); N18.6 End stage renal disease; I12.0 Hypertensive chronic kidney disease with stage 5 chronic kidney disease or end stage renal disease; E11.22 Type 2 diabetes mellitus with diabetic chronic kidney disease; J44.9 Chronic obstructive pulmonary disease, unspecified; Z86.73 Personal history of transient ischemic attack (TIA), and cerebral infarction without residual deficits; Z88.5 Allergy status to narcotic agent; Y92.89 Other specified places as the place of occurrence of the external cause
CPT/HCPCS: 36415; 36581; 77001; 80048; 80053; 80074; 80320; 82962; 84703; 85025; G0378; C1750; G0480; J1644; J2250; J3010; J7050; U0003